=== PATIENT | male | born 1985 | race Caucasian/White ===

== ENCOUNTER 2023-07-16 10:41 | Inpatient (IN) | payer OTHER ==
[2023-07-16] MEDS ORDERED: LIDOCAINE 4% PATCH TP ONE (11:43)
[2023-07-16] MEDS ORDERED: ACETAMINOPHEN 325 MG TABLET (FP) ONE (11:43)
[2023-07-16] MEDS: LIDOCAINE 4% PATCH TP ONE (11:46)
[2023-07-16] MEDS: ACETAMINOPHEN 500 MG TABLET (FP) PO ONE (11:46)
[2023-07-16 11:56] LABS: HEMATOCRIT 35.4 % (35.4-49); HEMOGLOBIN 11.8 GM/dL (11.7-16.9); MCHC 33.3 g/dl (32.0-35.9); MEAN PLT VOLUME 8.2 fl (7.5-11.1); RBC 4.21 M/mm3 (4.00-5.60); RDW 16.2 % (11.9-15.9)
[2023-07-16 12:01] LABS: PLATELET COUNT 239 10^3/uL (134-434)
[2023-07-16] MEDS ORDERED: methaDONE HCL 10 MG TABLET ONE ×2 (12:09→13:04)
[2023-07-16] MEDS: methaDONE HCL 10 MG TABLET (FOR DETOX USE ONLY) PO ONE ×2 (12:14→13:06)
[2023-07-16 12:16] LABS: CHLORIDE 107 mmol/L (98-107); SODIUM 138 mmol/L (136-145)
[2023-07-16 12:18] LABS: CALCIUM 8.9 mg/dL (8.5-10.1)
[2023-07-16 12:19] LABS: ALBUMIN 3.4 g/dl (3.4-5.0); BLOOD UREA NITROGEN 15.4 mg/dL (7-18); CO2 26 mmol/L (21-32); GLUCOSE,RANDOM 116 mg/dL (74-106); MAGNESIUM 2.2 mg/dL (1.8-2.4)
[2023-07-16 12:22] LABS: CREATININE 0.7 mg/dL (0.55-1.3); SGOT/AST 37 U/L (15-37); SGPT/ALT 17 U/L (13-61)
[2023-07-16 12:23] LABS: BILIRUBIN,TOTAL 0.3 mg/dL (0.2-1)
[2023-07-16 12:24] LABS: TOT PROT 7.1 g/dl (6.4-8.2)
[2023-07-16 12:25] LABS: ALK PHOS 83 U/L (45-117)
[2023-07-16 12:26] LABS: ANION GAP 5 mmol/L (4-13); LACTIC ACID 3.9 mmol/L (0.4-2.0); POTASSIUM 6.2 mmol/L (3.5-5.1)
[2023-07-16 12:43] LABS: ANISOCYTOSIS 0; MACROCYTOSIS 0
[2023-07-16 13:15] LABS: ERYTHROCYTE SEDIMENTATION RATE 8 mm/hr (0-10)
[2023-07-16] MEDS: SODIUM CHLORIDE 0.9% 500 ML INFUS.BAG IV ONE (13:33)
[2023-07-16 13:57] LABS: POTASSIUM 3.8 mmol/L (3.5-5.1)
[2023-07-16 13:59] LABS: BLOOD UREA NITROGEN 14.6 mg/dL (7-18); CALCIUM 8.9 mg/dL (8.5-10.1)
[2023-07-16 14:03] LABS: CREATININE 0.6 mg/dL (0.55-1.3)
[2023-07-16 15:02] LABS: URINE APPEARANCE CLEAR; URINE BILIRUBIN NEGATIVE (NEGATIVE); URINE COLOR YELLOW; URINE GLUCOSE (UA) 1+ (NEGATIVE); URINE KETONE NEGATIVE (NEGATIVE); URINE PROTEIN 1+ (NEGATIVE)
[2023-07-16 15:03] LABS: URINE LEUK ESTERASE NEGATIVE (NEGATIVE); URINE NITRITE NEGATIVE (NEGATIVE); URINE UROBILINOGEN 0.2 mg/dL (0.2-1.0)
[2023-07-16] MEDS ORDERED: ALPRAZolam 0.25 MG TABLET PO PRN (16:09)
[2023-07-16] MEDS ORDERED: ACETAMINOPHEN 325 MG TABLET (FP) PO PRN (16:10)
[2023-07-16] MEDS: DEXTROSE 5%-0.45% SALINE 1,000 ML IV SCH (18:39)
[2023-07-16] MEDS ORDERED: clonazePAM 0.5 MG TABLET ONE (18:50)
[2023-07-16] MEDS ORDERED: oxyCODONE HCL 5 MG TABLET ONE (18:50)
[2023-07-16] MEDS: clonazePAM 0.5 MG TABLET PO SCH (18:53)
[2023-07-16] MEDS: oxyCODONE HCL 5 MG TABLET PO SCH (18:54)
[2023-07-16] MEDS: LIDOCAINE PATCH REMOVAL MC SCH ×2 (22:32)
[2023-07-17 06:52] LABS: BASO % 0.2 % (0-2.0); HEMATOCRIT 36.3 % (35.4-49); LYMPH % 15.2 % (8-40); MCH 27.5 pg (25.7-33.7); MCHC 32.9 g/dl (32.0-35.9); MEAN CELL VOLUME 83.5 fl (80-96); MEAN PLT VOLUME 7.6 fl (7.5-11.1); MONO % 5.8 % (3.8-10.2); NEUT % 78.8 % (42.8-82.8); PLATELET COUNT 270 10^3/uL (134-434); RBC 4.35 M/mm3 (4.00-5.60); RDW 15.3 % (11.9-15.9); WHITE BLOOD COUNT 9.6 K/mm3 (4.0-10.0)
[2023-07-17 07:17] LABS: POTASSIUM 3.6 mmol/L (3.5-5.1)
[2023-07-17 07:20] LABS: BLOOD UREA NITROGEN 13.2 mg/dL (7-18); CALCIUM 8.6 mg/dL (8.5-10.1)
[2023-07-17 07:24] LABS: CREATININE 0.6 mg/dL (0.55-1.3)
[2023-07-17] MEDS: levETIRAcetam 500 MG TABLET (FP) PO SCH (11:40)
[2023-07-17] MEDS: methaDONE HCL 40 MG DISPERSABLE TABLET PO ONE (11:40)
[2023-07-17] MEDS: LIDOCAINE 4% PATCH TP SCH (11:41)
[2023-07-17 12:01] LABS: URINE AMPHETAMINES NEGATIVE (NEGATIVE); URINE BARBITURATES NEGATIVE (NEGATIVE)
[2023-07-17 12:02] LABS: PHENCYCLIDINE,URINE NEGATIVE (NEGATIVE)
[2023-07-17 12:06] LABS: COCAINE, UR POSITIVE (NEGATIVE); METHADONE, UR POSITIVE (NEGATIVE); OPIATES, URI POSITIVE (NEGATIVE); URINE BENZODIAZEPINES POSITIVE (NEGATIVE)
[2023-07-17] MEDS: clonazePAM 0.5 MG TABLET PO SCH ×2 (17:13→22:06)
[2023-07-17] MEDS: SODIUM CHLORIDE 1,000 ML IV SCH (17:58)
[2023-07-17 18:05] LABS: PHOSPHOROUS 2.6 mg/dL (2.5-4.9)
[2023-07-17] MEDS: oxyCODONE HCL 5 MG TABLET PO SCH (18:17)
[2023-07-18 07:05] LABS: BASO % 0.2 % (0-2.0); EOS % 0.1 % (0-4.5); HEMATOCRIT 37.2 % (35.4-49); HEMOGLOBIN 12.2 GM/dL (11.7-16.9); LYMPH % 24.4 % (8-40); MCH 27.5 pg (25.7-33.7); MCHC 32.9 g/dl (32.0-35.9); MEAN CELL VOLUME 83.4 fl (80-96); MEAN PLT VOLUME 7.7 fl (7.5-11.1); MONO % 7.4 % (3.8-10.2); NEUT % 67.9 % (42.8-82.8); PLATELET COUNT 244 10^3/uL (134-434); RBC 4.46 M/mm3 (4.00-5.60); RDW 16.1 % (11.9-15.9); WHITE BLOOD COUNT 6.1 K/mm3 (4.0-10.0)
[2023-07-18 07:28] LABS: POTASSIUM 3.6 mmol/L (3.5-5.1)
[2023-07-18 07:31] LABS: ALBUMIN 3.4 g/dl (3.4-5.0); BLOOD UREA NITROGEN 12.8 mg/dL (7-18); CALCIUM 8.7 mg/dL (8.5-10.1)
[2023-07-18 07:34] LABS: CREATININE 0.6 mg/dL (0.55-1.3); MAGNESIUM 2.1 mg/dL (1.8-2.4)
[2023-07-18 07:35] LABS: PHOSPHOROUS 2.2 mg/dL (2.5-4.9)
[2023-07-18 07:36] LABS: BILIRUBIN,TOTAL 0.3 mg/dL (0.2-1); TOT PROT 6.6 g/dl (6.4-8.2)
[2023-07-18] MEDS: methaDONE HCL 40 MG DISPERSABLE TABLET PO SCH (12:23)
[2023-07-18 12:30] LABS: HIV INTERPRETATION NEGATIVE (NEGATIVE)
[2023-07-18] MEDS ORDERED: oxyCODONE HCL 5 MG TABLET PO PRN (12:30)
[2023-07-18] MEDS: NAPH,MB-DB/K PH,MBDB POWDER PACKET PO ONE (13:18)
[2023-07-18] MEDS ORDERED: ACETAMINOPHEN 325 MG TABLET (FP) PO SCH (16:15)
[2023-07-18] MEDS: ACETAMINOPHEN 325 MG TABLET (FP) PO SCH (16:29)
[2023-07-18] MEDS: THIAMINE HCL 100 MG TABLET (FP) PO ONE (17:10)
[2023-07-18] MEDS: FOLIC ACID 1 MG TABLET (FP) PO ONE (17:10)
[2023-07-18] MEDS: MULTIVITAMINS (DAILY MVI) TABLET (FP) PO ONE (17:10)
[2023-07-18] MEDS ORDERED: IBUPROFEN 400 MG TABLET (FP) PO PRN (17:15)
[2023-07-18] MEDS ORDERED: IBUPROFEN 600 MG TABLET (FP) PO PRN (17:15)
[2023-07-18] MEDS ORDERED: guaiFENesin 600 MG TABLET.ER (FP) PO PRN (17:15)
[2023-07-18] MEDS ORDERED: DICYCLOMINE HCL 10 MG CAPSULE PO PRN (17:15)
[2023-07-18] MEDS ORDERED: POLYETHYLENE GLYCOL (HEALTHYLAX) 3350 17 GM PACKET PO PRN (17:15)
[2023-07-18] MEDS ORDERED: ONDANSETRON *ODT* 4 MG TABLET SL PRN (17:15)
[2023-07-18] MEDS ORDERED: BENZONATATE 200 MG CAPSULE PO PRN (17:15)
[2023-07-18] MEDS ORDERED: BISMUTH SUBSALICYLATE 524 MG/30 ML PO PRN (17:15)
[2023-07-18] MEDS ORDERED: hydrOXYzine PAMOATE 25 MG CAPSULE (FP) PO PRN (17:15)
[2023-07-18] MEDS ORDERED: NALOXONE HCL (KLOXXADO) 8 MG SPRAY NS PRN (17:15)
[2023-07-18] MEDS ORDERED: LOPERAMIDE HCL 2 MG CAPSULE PO PRN (17:15)
[2023-07-18] MEDS ORDERED: NALOXONE HCL 0.4 MG/ML VIAL IM PRN (17:15)
[2023-07-18] MEDS ORDERED: MAGNESIUM HYDROX 2400MG/30ML ORAL SUSPENSION 30 ML CUP PO PRN (17:15)
[2023-07-18] MEDS ORDERED: BENZOCAINE/MENTHOL (CHLORASEPTIC ) LOZENGE MM PRN (17:15)
[2023-07-18] MEDS ORDERED: METHOCARBAMOL 500 MG TABLET PO PRN (17:15)
[2023-07-18] MEDS: MELATONIN 5 MG TABLETS PO SCH (21:29)
[2023-07-18 21:45] VITALS: BMI 16.7
[2023-07-19] MEDS: NAPROXEN 250 MG TABLET PO SCH (00:30)
[2023-07-19 06:56] LABS: HEMATOCRIT 36.6 % (35.4-49); HEMOGLOBIN 12.2 GM/dL (11.7-16.9); MCH 27.9 pg (25.7-33.7); MCHC 33.5 g/dl (32.0-35.9); MEAN CELL VOLUME 83.4 fl (80-96); MEAN PLT VOLUME 7.7 fl (7.5-11.1); PLATELET COUNT 210 10^3/uL (134-434); RBC 4.39 M/mm3 (4.00-5.60); RDW 15.5 % (11.9-15.9); WHITE BLOOD COUNT 5.8 K/mm3 (4.0-10.0)
[2023-07-19 07:12] LABS: POTASSIUM 3.5 mmol/L (3.5-5.1)
[2023-07-19 07:21] LABS: BLOOD UREA NITROGEN 12.4 mg/dL (7-18); CALCIUM 8.4 mg/dL (8.5-10.1); MAGNESIUM 1.9 mg/dL (1.8-2.4)
[2023-07-19 07:24] LABS: CREATININE 0.6 mg/dL (0.55-1.3); PHOSPHOROUS 2.9 mg/dL (2.5-4.9)
[2023-07-19 07:25] LABS: BILIRUBIN,TOTAL 0.3 mg/dL (0.2-1)
[2023-07-19] MEDS: MULTIVITAMINS (DAILY MVI) TABLET (FP) PO SCH (09:44)
[2023-07-19] MEDS: THIAMINE HCL 100 MG TABLET (FP) PO SCH (09:44)
[2023-07-19] MEDS: FOLIC ACID 1 MG TABLET (FP) PO SCH (09:44)
[2023-07-19] MEDS: PRENATAL VITAMINS W/ FOLIC ACID TABLET (FP) PO SCH (09:45)
[2023-07-20] MEDS: MAG HYDROX/AL HYDROX/SIMETH 30 ML UNIT-DOSE CUP PO PRN (17:30)
[2023-07-21 07:22] LABS: HEMATOCRIT 34.5 % (35.4-49); HEMOGLOBIN 11.5 GM/dL (11.7-16.9); MCH 28.1 pg (25.7-33.7); MCHC 33.4 g/dl (32.0-35.9); MEAN CELL VOLUME 84.1 fl (80-96); MEAN PLT VOLUME 7.8 fl (7.5-11.1); PLATELET COUNT 199 10^3/uL (134-434); RBC 4.11 M/mm3 (4.00-5.60); RDW 15.7 % (11.9-15.9)
[2023-07-21 07:23] LABS: INR 1.11 (0.83-1.09); PROTHROMBIN TIME (PATIENT) 12.9 SEC (9.7-13.0)
[2023-07-21 07:40] LABS: POTASSIUM 3.9 mmol/L (3.5-5.1)
[2023-07-21 07:44] LABS: BLOOD UREA NITROGEN 14.7 mg/dL (7-18); MAGNESIUM 2.2 mg/dL (1.8-2.4)
[2023-07-21 07:48] LABS: CREATININE 0.6 mg/dL (0.55-1.3); PHOSPHOROUS 2.4 mg/dL (2.5-4.9)
[2023-07-21] MEDS: NAPH,MB-DB/K PH,MBDB POWDER PACKET PO ONE (14:37)
[2023-07-21] MEDS: SODIUM CHLORIDE 1,000 ML IV STA (15:14)
[2023-07-22 11:26] VITALS: BP 95/53; PULSE 60; RESP 18; TEMP 98.1
== END 2023-07-22 15:13 | disposition home or self-care (01) | DRG 53 ==
LOC: JER 10:41 → JERBED 14:39 → J4W 21:55
PROVIDERS: ADMIT Internal Medicine; ATTEND Internal Medicine
DX: R56.9 Unspecified convulsions (principal); E43 Unspecified severe protein-calorie malnutrition; S22.059A Unspecified fracture of T5-T6 vertebra, initial encounter for closed fracture; E87.5 Hyperkalemia; F11.20 Opioid dependence, uncomplicated; E05.90 Thyrotoxicosis, unspecified without thyrotoxic crisis or storm; F13.939 Sedative, hypnotic or anxiolytic use, unspecified with withdrawal, unspecified; R00.1 Bradycardia, unspecified; Z86.19 Personal history of other infectious and parasitic diseases; X58.XXXA Exposure to other specified factors, initial encounter; Y93.9 Activity, unspecified; Y92.89 Other specified places as the place of occurrence of the external cause; Y99.9 Unspecified external cause status; Z68.1 Body mass index [BMI] 19.9 or less, adult
CPT/HCPCS: 0241U-QW; 36415; 70450-TC; 70553-TC; 72070-TC-FY; 72100-TC-FY; 72129-TC; 72132-TC; 72157-TC; 74177-TC; 76700-TC; 80048; 80053; 80307; 81003; 82550; 82553; 82962; 83605; 83735; 84100; 84439; 84443; 84481; 85025; 85027; 85045; 85610; 85651; 86140; 86803; 86850; 86900; 86901; 87086; 87389; 87522; 87635; 93005; 93010; 93306-TC; 97116-GP; 97161-GP; 99285-25; Q9967